=== PATIENT | male | born 1990 | race African-American/Black ===

== ENCOUNTER 2016-11-06 16:52 | Emergency (ER) | payer SELFPAY | END 2016-11-06 18:13 | disposition home or self-care (01) | LOC: ER 16:52 | DX: S40.012A Contusion of left shoulder, initial encounter (principal); F17.210 Nicotine dependence, cigarettes, uncomplicated; W22.01XA Walked into wall, initial encounter; Y93.61 Activity, american tackle football | CPT/HCPCS: 73030-LT; 99284 ==

== ENCOUNTER 2016-11-20 16:44 | Emergency (ER) | payer SELFPAY | END 2016-11-20 18:29 | disposition home or self-care (01) | LOC: ER 16:44 | DX: S43.102A Unspecified dislocation of left acromioclavicular joint, initial encounter (principal); X58.XXXA Exposure to other specified factors, initial encounter | CPT/HCPCS: 99283 ==